=== PATIENT | male | born 2000 | race Caucasian/White ===

== ENCOUNTER 2023-04-21 20:38 | Emergency (ER) | payer MEDICAID, SELFPAY ==
[~2023-04-21] VITALS: Ht 185.4 cm; Wt 109.3 kg
[2023-04-21] MEDS ORDERED: CEPHALEXIN 500 MG CAP PO ONE (23:55)
[2023-04-21] MEDS ORDERED: LIDOCAINE 1% MDV 20ML VIAL SC ONE (23:55)
[2023-04-22] MEDS ORDERED: CEPH500C PO (00:28)
[2023-04-22 00:33] VITALS: BP 142/87; TEMP 97.9; O2SAT 99
== END 2023-04-22 00:44 | disposition home or self-care (01) ==
LOC: M ED 20:38
DX: S61.210A Laceration without foreign body of right index finger without damage to nail, initial encounter (principal); W26.0XXA Contact with knife, initial encounter; Y92.009 Unspecified place in unspecified non-institutional (private) residence as the place of occurrence of the external cause; Y93.89 Activity, other specified